=== PATIENT | male | born 1965 | race Caucasian/White ===

== ENCOUNTER 2017-06-20 10:27 | Emergency (ER) | payer OTHER ==
[~2017-06-20] VITALS: Ht 190.5 cm; Wt 120.2 kg
[2017-06-20] MEDS ORDERED: LIDOCAINE 2% JELLY 10ML IN APPLICATOR. ONE (10:50)
[2017-06-20 11:20] LABS: BILIRUBIN,URINE NEG (NEG); CLARITY,URINE BLOODY; COLOR,URINE BROWN; GLUCOSE,URINE NEG (NEG); NITRITE,URINE POS (NEG); RBC,URINE TNTC /HPF (0-2); UROBILINOGEN,URINE 1 mg/dL (0.2 mg/dL)
[2017-06-20 11:21] LABS: BACTERIA,URINE MOD /HPF (0-FEW); SQUAMOUS EPITHELIAL CELL,UR OCC /LPF
[2017-06-20 11:49] VITALS: BP 147/81
[2017-06-20] MEDS ORDERED: DOXYCYCLINE HYCLATE 100 MG TABLET PO ONE (12:15)
--- NOTE | 2017-06-20 14:26 | ED.ADGEN ---
Past History Past Medical History: Asthma Alcohol Use: None Drug Use: None Adult General Chief Complaint Chief Complaint Urinary retention, hematuria HPI HPI Patient is a 52-year-old male visiting from [place] of town with history of enlarged prostate with bladder outlet obstruction with recent prostate surgery approximately 8 weeks ago who presents with hematuria and urinary retention. Symptom onset began several hours prior to ED arrival. Patient reports suprapubic fullness, pain and cramping. Patient states he is urinary frequency but is only able to pass 5-10 mL of dark bloody urine at a time. Patient does report some passage of clots. Patient has had urinary retention since time of procedure requiring times fully catheter and self-catheterization. Is also had a urinary tract infection during the postoperative period. Patient denies fever chills, nausea vomiting and sweats. Denies flank pain. No other acute symptoms or complaints. Review of Systems Review of Systems Review symptoms as per history of present illness. All other review symptoms are negative. Current Medications Current Medications Current Medications Medications (Trade) Dose Ordered Sig/Juan Start Time Stop Time Status Last Admin Dose Admin Doxycycline Hyclate (Vibra-Tab) 100 mg 1X ONCE 06/20/17 12:15 06/20/17 12:16 DC 06/20/17 11:58 100 MG Lidocaine HCl (Uro-Jet) 10 raisa STK-MED ONCE 06/20/17 10:50 06/20/17 10:51 DC Allergies Allergies Allergies Coded Allergies Type Severity Reaction Last Updated Verified erythromycin base Allergy Unknown 06/20/17 Yes Physical Exam Physical Exam Constitutional: Well developed, moderate distress secondary to pain. [] HENT: Normocephalic, atraumatic, bilateral external ears normal, oropharynx moist, no oral exudates, nose normal. [] Eyes: PERRLA, EOMI, conjunctiva normal, no discharge. [] Neck: Normal range of motion, no tenderness, supple, no stridor. [] Cardiovascular:Heart rate regular rhythm, no murmur [] Lungs & Thorax: Bilateral breath sounds clear to auscultation [] Abdomen: Bowel sounds normal, soft, suprapubic pain, tenderness and fullness. [ ] Skin: Warm, dry, no erythema, no rash. [] Back: No tenderness, no CVA tenderness. [] Extremities: No tenderness, no cyanosis, no clubbing, ROM intact, no edema. [] Neurologic: Alert and oriented X 3, normal motor function, normal sensory function, no focal deficits noted. [] Psychologic: Affect normal, judgement normal, mood normal. [] Current Patient Data Vital Signs Vital Signs Date Time Temp Pulse Resp B/P (MAP) Pulse Ox O2 Delivery O2 Flow Rate FiO2 06/20/17 11:49 99 16 147/81 (103) 99 Room Air 06/20/17 10:45 98.8 Lab Results Laboratory Tests Test 06/20/17 10:45 Urine Collection Type Unknown Urine Color Brown Urine Clarity Bloody Urine pH 6.5 Urine Specific [place] >=1.030 Urine Protein >100 mg/dl (NEG-TRACE) Urine Glucose (UA) Neg mg/dL (NEG) Urine Ketones (Stick) Neg mg/dL (NEG) Urine Blood Large (NEG) Urine Nitrite Pos (NEG) Urine Bilirubin Neg (NEG) Urine Urobilinogen Dipstick 1 mg/dL (0.2 mg/dL) Urine Leukocyte Esterase Small (NEG) Urine RBC Tntc /HPF (0-2) Urine WBC 1-4 /HPF (0-4) Urine Squamous Epithelial Cells Occ /LPF Urine Bacteria Mod /HPF (0-FEW) EKG EKG [] Radiology/Procedures Radiology/Procedures [] Course & Med Decision Making Course & Med Decision Making Pertinent Labs and Imaging studies reviewed. (See chart for details) [Quintero catheter placed with approximately 900 mL of dark bloody urine obtained. Symptoms improved. Antibiotics given. Patient instructed to follow-up with his urologist upon returning home. ] Final Impression Final Impression [#1 acute urinary retention #2 hematuria] Problems: Dragon Disclaimer Dragon Disclaimer This electronic medical record was generated, in whole or in part, using a voice recognition dictation system. PRICE BLUE DO Jun 20, 2017 14:26
== END 2017-06-20 11:55 | disposition home or self-care (01) ==
LOC: ER 10:27
DX: R33.8 Other retention of urine (principal); R31.9 Hematuria, unspecified; J45.909 Unspecified asthma, uncomplicated; Z88.1 Allergy status to other antibiotic agents
CPT/HCPCS: 51702; 81001; 87086; 99284-25